=== PATIENT | male | born 1965 | race Two or more races ===

== ENCOUNTER 2017-10-07 20:53 | Emergency (ER) | payer BC, OTHER ==
[2017-10-07 21:17] VITALS: BP 184/102
--- NOTE | 2017-10-07 21:53 | RAD ---
INDICATION: Right knee pain. TECHNIQUE: 4 views of the right knee were obtained. FINDINGS: There is a bipartite patella. The bones are in normal alignment. No joint effusion or acute fracture is seen. Joint spaces appear maintained. IMPRESSION: BIPARTITE PATELLA, OTHERWISE UNREMARKABLE STUDY.
[2017-10-07] MEDS ORDERED: HYDROcodone/ACETAMIN 5-325 MG* 1 TAB PO ONE (21:54)
--- NOTE | 2017-10-07 22:10 | UC ---
Trever Wray Jade, scribed for Arias Huang MD on 10/07/17 at 2141 . Knee Pain HPI - HPI Summary HPI Summary: Pt is a 51 y/o male who presents to [facility] [place] c/o knee pain. The pain began Tuesday, and has gradually worsened to a pain intensity of 8/10. He cannot put weight on his right knee or move it without reproducing pain. He states he had a right knee ligament injury in 1993 from running. Pt denies any recent injury. - History of Current Complaint Chief Complaint: UCLowerExtremity Stated Complaint: KNEE PAIN Hx Obtained From: Patient Onset/Duration: Gradual Onset, Lasting Days - 2 days, Still Present Severity Currently: Severe Pain Intensity: 8 Pain Scale Used: 0-10 Numeric Character: Stiffness Aggravating Factor(s): Movement, Weight Bearing - Allergies/Home Medications Allergies/Adverse Reactions: Allergies Allergy/AdvReac Type Severity Reaction Status Date / Time No Known Allergies Allergy Verified 12/01/16 10:47 PMH/Surg Hx/FS Hx/Imm Hx Endocrine History: Other - Pre-diabetes Other Endocrine History: Right knee ligament injury GI/ History: Other - NEGATIVE: Colon disease Other GI/ History: . - Surgical History Surgical History: None - Family History Known Family History: Positive: Diabetes - Social History Alcohol Use: Rare Substance Use Type: None Smoking Status (MU): Light Every Day Tobacco Smoker Amount Used/How Often: 1 pack every two weeks Review of Systems Constitutional: Other - NEGATIVE: fever Musculoskeletal: Arthralgia - Right knee pain All Other Systems Reviewed And Are Negative: Yes Physical Exam - Summary Physical Exam Summary: General: well-appearing, no pain distress Skin: warm, color reflects adequate perfusion, dry. No effusion over right knee. Head: normal Eyes: EOMI, MALINA ENT: normal Neck: supple, nontender Respiratory: CTA, breath sounds present Cardiovascular: RRR Abdomen: soft, nontender Bowel: present Musculoskeletal: strength/ROM intact. Patella non-tender. Lateral collateral ligaments non-tender. Knee stable to exam. Negative McMurrays and Lachmans tests. Increased pain with complete flexion. Neurological: sensory/motor intact, A&O x3 Psychological: affect/mood appropriate Triage Information Reviewed: Yes Vital Signs: Initial Vital Signs Temp 99.1 F 10/07/17 21:11 Pulse 72 10/07/17 21:11 Resp 16 10/07/17 21:11 BP 184/102 10/07/17 21:11 Pulse Ox 100 10/07/17 21:11 Vital Signs Reviewed: Yes Diagnostics - Radiology Knee XR Xray Interpretation: Positive (See Comments) - BIPARTITE PATELLA, OTHERWISE UNREMARKABLE STUDY. physician reviewed radiology report. Radiology Interpretation Completed By: Radiologist Knee Pain Course/Dx - Course Course Of Treatment: F/U SPORTS MEDICINE. BP noted and advised to follow up with PCP. - Differential Dx/Diagnosis Provider Diagnoses: right knee pain. Elevated BP without dx of HTN. Discharge - Sign-Out/Discharge Documenting (check all that apply): Discharge/Admit/Transfer - Discharge - Discharge Plan Condition: Stable Disposition: HOME Prescriptions: HYDROcodone/ACETAMIN 5-325 MG* [[place] 5-325 TAB*] 1 tab PO Q4H PRN #20 tab MDD 6 PRN Reason: Pain Patient Education Materials: Knee Pain (ED) Forms: *Work Release Referrals: Zi Hamm [Medical Doctor] - Paul Silva MD [Medical Doctor] - Hope Timmons [Primary Care Provider] - Additional Instructions: FOLLOW UP WITH SPORTS MEDICINE. GET RECHECKED FOR ANY WORSENING OF YOUR CONDITION OR QUESTIONS OR CONCERNS. Your blood pressure was elevated during todays visit; please follow up with your primary care provider within a week for further evaluation. - Billing Disposition and Condition Condition: STABLE Disposition: Home The documentation as recorded by the Trever cabrera Jade accurately reflects the service I personally performed and the decisions made by me, Arias Huang MD.
== END 2017-10-07 22:18 | disposition home or self-care (01) ==
LOC: UCEAST 20:53
DX: M25.561 Pain in right knee (principal); Q74.1 Congenital malformation of knee; R03.0 Elevated blood-pressure reading, without diagnosis of hypertension; R73.03 Prediabetes; F17.210 Nicotine dependence, cigarettes, uncomplicated; Z83.3 Family history of diabetes mellitus
CPT/HCPCS: 99212; G0463